=== PATIENT | female | born 1955 | race Caucasian/White ===

== ENCOUNTER → 2017-04-17 | Outpatient (CLI) | payer OTHER | LOC: FIMAGING 15:01 | PROVIDERS: ATTEND Surgery | DX: N63.21 Unspecified lump in the left breast, upper outer quadrant (principal) | CPT/HCPCS: G0204 ==

== ENCOUNTER → 2017-05-29 | Outpatient (CLI) | payer OTHER ==
[~2017-05-29] MED LIST: GADOBUTROL 10 ML VIAL IVP ONE
== END ==
LOC: FIMAGING 12:35
PROVIDERS: ATTEND Surgery
DX: C50.412 Malignant neoplasm of upper-outer quadrant of left female breast (principal)
CPT/HCPCS: 0159T; 77059; A9585; C8908

== ENCOUNTER 2017-06-10 14:05 | Day surgery (SDC) | payer OTHER ==
[2017-06-10] MEDS ORDERED: BUPIVACAINE 0.5% 30 ML SDV ONE (15:12)
[2017-06-10] MEDS ORDERED: LIDOCAINE 1% 300 MG/30 ML SDV ONE (15:12)
[2017-06-10 15:13] LABS: ANION GAP 13 mEq/L (8-16); CALCIUM 10.2 mg/dL (8.5-10.4); CARBON DIOXIDE 29 mEq/l (22-31); CHLORIDE 101 mEq/L (97-110); GLOMERULAR FILTRATION RATE 56; GLUCOSE 117 mg/dL (70-100); POTASSIUM 3.3 mEq/L (3.5-5.2); SODIUM 143 mEq/L (134-144)
--- NOTE | 2017-06-10 15:37 | PDHPUP ---
History & Physical Update H&P update statement: This history and physical update is based on an assessment of the patient which was completed after admission or registration (within 24 hours), but prior to the surgery/procedure.
--- NOTE | 2017-06-10 16:13 | PDANEPAE ---
ANE History of Present Illness 61 year old female presents for breast lumpectomy. ANE Past Medical History - Cardiovascular History Hx Hypertension: Yes Hx Arrhythmias: No Hx Chest Pain: No Hx Coronary Artery / Peripheral Vascular Disease: No Hx CHF / Valvular Disease: No Hx Palpitations: No - Pulmonary History Hx COPD: No Hx Asthma/Reactive Airway Disease: No Hx Recent Upper Respiratory Infection: No Hx Oxygen in Use at Home: No Hx Sleep Apnea: No Sleep Apnea Screening Result - Last Documented: Negative - Neurologic History Hx Cerebrovascular Accident: No Hx Seizures: No Hx Dementia: No - Endocrine History Hx Diabetes: No Hypothyroid: No Hyperthyroid: No Obesity: mild - Renal History Hx Renal Disorders: No - Liver History Hx Hepatic Disorders: No - Neurological & Psychiatric Hx Hx Neurological and Psychiatric Disorders: No - Cancer History Hx Cancer: No - Congenital Disorder History Hx Congenital Disorders: No - GI History GERD: mild Hx Gastrointestinal Disorders: No - Other Health History Other Health History: mass L breast. allergies/hayfever w/ear congestion- postnasal drainage. - Chronic Pain History Chronic Pain: No - Surgical History Prior Surgeries: T and A age 3. cyst excision L ft 1988. cyst excision R shoulder. uterine fibroids removed ANE Review of Systems Review of systems is: negative Review of Systems: - Exercise capacity Exercise capacity: >=4 METS METS (RN): 4 METS ANE Patient History - Allergies Allergies/Adverse Reactions: adhesive Allergy (Verified 06/09/17 14:00) Other-Enter Comments ibuprofen Allergy (Verified 06/09/17 13:58) Other-Enter Comments mold Allergy (Verified 06/09/17 14:00) Penicillins Allergy (Verified 06/09/17 13:58) Other-Enter Comments shellfish derived Allergy (Verified 06/09/17 14:00) Loss of consciousness Sulfa (Sulfonamide Antibiotics) Allergy (Verified 06/09/17 13:58) Other-Enter Comments tetracycline Allergy (Verified 06/09/17 13:58) Rash - Home Medications Home medications: home medication list seen and reviewed Home Medications: Amlodipine Besylate 06/09/17 [Last Taken 06/10/17 06:30] Aspirin 81mg (*) 06/09/17 [Last Taken 06/10/17 08:00] Losartan/Hydrochlorothiazide 06/09/17 [Last Taken 06/09/17 08:00] Prevacid 06/09/17 [Last Taken 06/09/17] Women's Daily Formula Tablet 06/09/17 [Last Taken 06/10/17 08:00] ZYRTEC 06/09/17 [Last Taken 06/10/17 07:30] - NPO status NPO Status: no food or drink >8 hours NPO Since - Liquids (Date): 06/09/17 NPO Since - Liquids (Time): 12:00 NPO Since - Solids (Date): 06/10/17 NPO Since - Solids (Time): 07:30 - Anes Hx Anes Hx: no prior problems - Smoking Hx Smoking Status: Never smoked Marijuana use: No - Alcohol Use Alcohol Use: Rarely - Family Anes Hx Family Anes Hx: neg - N/A ANE Labs/Vital Signs - Labs Result Diagrams: 06/10/17 14:45 - Vital Signs Vital Signs: reviewed preoperatively; see RN documention for details Blood Pressure: 136/86 Heart Rate: 86 Respiratory Rate: 16 O2 Sat (%): 92 Height: 162.56 cm Weight: 78.471 kg ANE Physical Exam - Airway Neck exam: FROM Mallampati Score: Class 2 Mouth exam: normal dental/mouth exam - Pulmonary Pulmonary: no respiratory distress - Cardiovascular Cardiovascular: regular rate and rhythym - ASA Status ASA Status: II ANE Anesthesia Plan Anesthesia Plan: general endotracheal anesthesia Total IV Anesthesia: No
[2017-06-10] MEDS ORDERED: MIDAZOLAM 2 MG/2 ML VIAL IVP ONE (16:16)
[2017-06-10] MEDS ORDERED: MIDAZOLAM 2 MG/2 ML VIAL ONE (16:19)
[2017-06-10] MEDS ORDERED: fentaNYL 100 MCG/2 ML INJ ONE (16:22)
[2017-06-10] MEDS ORDERED: PROPOFOL 200 MG/20 ML VIAL ONE (16:22)
[2017-06-10] MEDS ORDERED: LIDOCAINE 2% 5 ML SDV ONE (16:38)
[2017-06-10] MEDS ORDERED: ROCURONIUM 50 MG/5 ML VIAL ONE (16:38)
[2017-06-10] MEDS ORDERED: DEXAMETHASONE 4 MG/ML VIAL ONE (16:47)
[2017-06-10] MEDS ORDERED: ONDANSETRON 4 MG/2 ML VIAL ONE (16:47)
[2017-06-10] MEDS ORDERED: PHENYLEPHRINE HCL 100 MCG/ML SYR ONE ×2 (17:04→17:24)
--- NOTE | 2017-06-10 18:18 | POSTOPPROG ---
Post Op Note Date of Operation: 06/10/17 Surgeon: Jackson Chu Lead Manufacturing Technician: none Anesthesiologist: Steve Torres Anesthesia: GET(General Endotracheal) Pre-op Diagnosis: left breast cancer Post-op Diagnosis: same Procedure: Partial mastectomy and L SLN bx Findings: Hot node sentinel with several other abnormal appearing nodes Inf/Abcess present in the surg proc area at time of surgery?: No EBL: Minimal Specimen(s): Left breast mass L sentinel lymph nodes
[2017-06-10] MEDS ORDERED: ONDANSETRON DISINTEGRATING 4 MG TAB PO PRN (18:25)
[2017-06-10] MEDS ORDERED: oxyCODONE IR 5 MG TAB PO PRN (18:25)
[2017-06-10] MEDS ORDERED: ONDANSETRON 4 MG/2 ML VIAL IVP PRN (18:50)
[2017-06-10] MEDS ORDERED: NALOXONE HCL 0.4 MG/ML INJ IVP PRN (18:50)
[2017-06-10] MEDS ORDERED: HYDROCODONE/APAP 5/325 TAB PO PRN (18:50)
[2017-06-10] MEDS ORDERED: LR 500 ML IV PRN (18:50)
[2017-06-10] MEDS ORDERED: HYDROmorphONE/DILAUDID 1 MG/ML INJ IVP PRN (18:50)
[2017-06-10] MEDS ORDERED: fentaNYL 100 MCG/2 ML INJ IVP PRN (18:50)
[2017-06-10 19:11] VITALS: BP 122/83; RESP 16; O2SAT 96
[2017-06-10] MEDS ORDERED: HYDROCODONE/APAP 5/325 TAB ONE (19:52)
[2017-06-10] MEDS ORDERED: ONDANSETRON DISINTEGRATING 4 MG TAB ONE (20:04)
[2017-06-10 20:40] VITALS: PULSE 68; TEMP 97.3
--- NOTE | 2017-06-11 04:09 | GOP ---
[f rep st] OPERATIVE REPORT DATE OF OPERATION: SURGEON: Jackson Chu MD ANESTHESIA: General endotracheal anesthesia was used. ANESTHESIOLOGIST: Owen Torres MD PREOPERATIVE DIAGNOSIS: Left breast cancer, upper outer. POSTOPERATIVE DIAGNOSIS: Left breast cancer, upper outer. PROCEDURE PERFORMED: Partial mastectomy with sentinel lymph node biopsy. FINDINGS: That of a large breast mass, margins negative on gross examination by Pathology, and senti tasha lymph nodes several appear abnormal, positive node has over 1000 unit count by gamma counter. INDICATIONS: This is a 61-year-old patient who presents with known breast cancer for definitive shandra tment, lumpectomy, and sentinel node biopsy. DESCRIPTION OF PROCEDURE: The patient was brought into the operating room. After induction of endot luz anesthesia in a supine position, her chest and axilla are prepped with chlorhexidine and drap ed sterilely. Timeout procedure was performed according to institutional standards. Local anestheti c was infused in skin and subcutaneous tissue above the nipple and areolar complex at the area of max imal mass palpation. Circumferential dissection was performed by elevating flaps superiorly, inferio rly, and performing a partial mastectomy of the upper outer quadrant of the breast, down to the chest wall. The pectoralis major muscle was identified and preserved. The margins were then sent off for pathology analysis, appeared negative initially grossly. The axilla is actually obtained through the same incision, and the axilla is entered by dividing the clavipectoral fascia. The gamma counter was then used to identify sentinel nodes, which were then br ought into the field of dissection, circumferentially dissected and excised. A small amount of bleed ing was noted from the vessels around the nodes. These were controlled with tie ligation and clips. Hemostasis assured. The area was irrigated and aspirated until clear. No sign of bleeding. The ar ea was closed using 3-0 Vicryl to reapproximate some of the tissue, and clips were then placed at the cavity margins for final radiation margins. The skin was then reapproximated in layered fashion usi ng 3-0 Vicryl and 4-0 Monocryl. Dermabond was applied. The patient was awakened, extubated, taken to the recovery room in stable condition. No immediate co mplication. /[id number]/MODL
--- NOTE | 2017-06-11 09:05 | POSTANESTH ---
Post Anesthetic Evaluation Cardiovascular Status: Normal, Stable, Similar to Pre-Op Cond Respiratory Status: Normal, Stable, Similar to Pre-op Cond. Level of Consciousness/Mental Status: Can Participate in Eval, Alert and Oriented Pain Control: Adequate, Prn Tx Ordered Nausea/Vomiting Control: Adequate, Prn Tx Ordered Complications Possibly Related to Anesthesia: None Noted
== END 2017-06-10 20:05 | disposition home or self-care (01) ==
LOC: FSGY 14:05
PROVIDERS: ATTEND Surgery
DX: C50.412 Malignant neoplasm of upper-outer quadrant of left female breast (principal); Z17.1 Estrogen receptor negative status [ER-]; I10 Essential (primary) hypertension; K21.9 Gastro-esophageal reflux disease without esophagitis
CPT/HCPCS: 19301; 38500; A9520; J1100; J2250; J2370; J2405; J2704; J3010

== ENCOUNTER 2017-07-27 15:16 | Day surgery (SDC) | payer OTHER ==
[2017-07-27] MEDS ORDERED: LIDOCAINE 1% 300 MG/30 ML SDV ONE (15:29)
[2017-07-27] MEDS ORDERED: BUPIVACAINE 0.5% 30 ML SDV ONE (15:30)
[2017-07-27] MEDS ORDERED: HEPARIN 1000 UNIT/1 ML MDV ONE (15:31)
[2017-07-27] MEDS ORDERED: LIDOCAINE 1% 2 ML INJ ID PRN (15:37)
[2017-07-27] MEDS ORDERED: LR 1,000 ML IV ONE (15:37)
[2017-07-27 15:54] VITALS: PULSE 70
[2017-07-27] MEDS ORDERED: MIDAZOLAM 2 MG/2 ML VIAL IVP ONE (16:19)
--- NOTE | 2017-07-27 16:19 | POSTOPPROG ---
Post Op Note Date of Operation: 07/27/17 Surgeon: Jackson Chu Anesthesiologist: Victoria Powers Anesthesia: IV Sedation Pre-op Diagnosis: left breast cancer Post-op Diagnosis: same Procedure: right chest port -a-cath Inf/Abcess present in the surg proc area at time of surgery?: No
[2017-07-27] MEDS ORDERED: MIDAZOLAM 2 MG/2 ML VIAL ONE (16:20)
--- NOTE | 2017-07-27 16:21 | PDANEPAE ---
ANE History of Present Illness port placement for breast Ca ANE Past Medical History - Cardiovascular History Hx Hypertension: Yes Hx Arrhythmias: No Hx Chest Pain: No Hx Coronary Artery / Peripheral Vascular Disease: No Hx CHF / Valvular Disease: No Hx Palpitations: No - Pulmonary History Hx COPD: No Hx Asthma/Reactive Airway Disease: No Hx Recent Upper Respiratory Infection: No Hx Oxygen in Use at Home: No Hx Sleep Apnea: No Sleep Apnea Screening Result - Last Documented: Negative Pulmonary History Comment: pneumonia 2012 - none since - Neurologic History Hx Cerebrovascular Accident: No Hx Seizures: No Hx Dementia: No - Endocrine History Hx Diabetes: No - Renal History Hx Renal Disorders: No - Liver History Hx Hepatic Disorders: No - Neurological & Psychiatric Hx Hx Neurological and Psychiatric Disorders: No - Cancer History Hx Cancer: Yes Cancer History Comment: breast ca l - Congenital Disorder History Hx Congenital Disorders: No - GI History Hx Gastrointestinal Disorders: Yes Gastrointestinal History Comment: acid reflux - Other Health History Other Health History: mass L breast. allergies/hayfever w/ear congestion- postnasal drainage. - Chronic Pain History Chronic Pain: No - Surgical History Prior Surgeries: l lumpectomy w/sn. T and A age 3. cyst excision L ft 1988. cyst excision R shoulder. uterine fibroids removed ANE Review of Systems Review of Systems: - Exercise capacity METS (RN): 4 METS ANE Patient History - Allergies Allergies/Adverse Reactions: adhesive Allergy (Verified 06/09/17 14:00) Other-Enter Comments ibuprofen Allergy (Verified 06/09/17 13:58) Other-Enter Comments latex Allergy (Verified 07/27/17 16:04) Rash mold Allergy (Verified 06/09/17 14:00) Penicillins Allergy (Verified 06/09/17 13:58) Other-Enter Comments shellfish derived Allergy (Verified 06/09/17 14:00) Loss of consciousness Sulfa (Sulfonamide Antibiotics) Allergy (Verified 06/09/17 13:58) Other-Enter Comments tetracycline Allergy (Verified 06/09/17 13:58) Rash - Home Medications Home Medications: Amlodipine Besylate 06/09/17 [Last Taken 07/27/17] Aspirin 81mg (*) 06/09/17 [Last Taken 1 Month Ago ~06/26/17] Losartan/Hydrochlorothiazide 06/09/17 [Last Taken 1 Day Ago ~07/26/17] Prevacid 06/09/17 [Last Taken 1 Day Ago ~07/26/17] Women's Daily Formula Tablet 06/09/17 [Last Taken 1 Week Ago ~07/20/17] ZYRTEC 06/09/17 [Last Taken 1 Week Ago ~07/20/17] Benadryl 07/22/17 [Last Taken 1 Month Ago ~06/26/17] EPIPEN 07/22/17 [Last Taken Unknown] - NPO status NPO Status: no food or drink >8 hours NPO Since - Liquids (Date): 07/27/17 NPO Since - Liquids (Time): 12:00 NPO Since - Solids (Date): 07/27/17 NPO Since - Solids (Time): 08:15 - Anes Hx Anes Hx: no prior problems - Smoking Hx Smoking Status: Never smoked - Alcohol Use Alcohol Use: Rarely - Family Anes Hx Family Anes Hx: none Family Hx Anesthesia Complications: neg ANE Labs/Vital Signs - Vital Signs Blood Pressure: 143/93 Heart Rate: 70 Respiratory Rate: 18 O2 Sat (%): 95 Height: 162.56 cm Weight: 78.471 kg ANE Physical Exam - Airway Mallampati Score: Class 2 Mouth exam: normal dental/mouth exam - Pulmonary Pulmonary: no respiratory distress - Cardiovascular Cardiovascular: regular rate and rhythym - ASA Status ASA Status: II ANE Anesthesia Plan Anesthesia Plan: GA w LMA, GA with mask
[2017-07-27] MEDS ORDERED: PROPOFOL/EMULSION 500 MG/50 ML BOTTLE IV ONE (16:27)
[2017-07-27] MEDS ORDERED: fentaNYL 100 MCG/2 ML INJ ONE (16:27)
[2017-07-27] MEDS ORDERED: LIDOCAINE 2% JELLY 5 ML TUBE ONE (16:29)
[2017-07-27] MEDS ORDERED: LIDOCAINE 2% 100 MG/5 ML SYR ONE (16:29)
[2017-07-27] MEDS ORDERED: ONDANSETRON DISINTEGRATING 4 MG TAB PO PRN (17:07)
[2017-07-27] MEDS ORDERED: HYDROCODONE/APAP 5/325 TAB PO PRN ×2 (17:07→17:10)
[2017-07-27] MEDS ORDERED: fentaNYL 100 MCG/2 ML INJ IVP PRN (17:10)
[2017-07-27] MEDS ORDERED: LR 500 ML IV PRN (17:10)
[2017-07-27] MEDS ORDERED: ALBUTEROL 3 ML DEYVIAL IH PRN (17:10)
[2017-07-27] MEDS ORDERED: DEXAMETHASONE 4 MG/ML VIAL IVP PRN (17:10)
[2017-07-27] MEDS ORDERED: PROMETHAZINE HCL 25 MG/ML INJ IVP PRN (17:10)
[2017-07-27] MEDS ORDERED: PHENYLEPHRINE HCL 100 MCG/ML SYR IVP PRN (17:10)
[2017-07-27] MEDS ORDERED: NALOXONE HCL 0.4 MG/ML INJ IVP PRN (17:10)
[2017-07-27] MEDS ORDERED: ONDANSETRON 4 MG/2 ML VIAL IVP PRN (17:10)
--- NOTE | 2017-07-27 17:11 | POSTANESTH ---
Post Anesthetic Evaluation Cardiovascular Status: Normal, Stable Respiratory Status: Normal, Stable Level of Consciousness/Mental Status: Can Participate in Eval Pain Control: Adequate, Prn Tx Ordered Nausea/Vomiting Control: Adequate, Prn Tx Ordered Complications Possibly Related to Anesthesia: None Noted
[2017-07-27 18:04] VITALS: TEMP 98.2
[2017-07-27 19:02] VITALS: BP 133/84; RESP 16; O2SAT 95
--- NOTE | 2017-07-28 00:31 | GOP ---
[f rep st] OPERATIVE REPORT DATE OF OPERATION: SURGEON: Jackson Chu MD PREOPERATIVE DIAGNOSIS: Breast cancer, left upper outer with 3 positive lymph nodes. POSTOPERATIVE DIAGNOSIS: Breast cancer, left upper outer with 3 positive lymph nodes. PROCEDURE PERFORMED: Port-A-Cath placement, right chest, through the internal jugular vein. FINDINGS: Good draw and flush of the port. Fluoroscopic guidance shows it is in the superior vena c ellyn. SPECIMENS: None. INDICATIONS: This is a 61-year-old woman who presents for Port-A-Cath placement. DESCRIPTION OF PROCEDURE: Patient was brought to the operating room. After induction of IV sedation , her chest was prepped with chlorhexidine and draped sterilely. Time-out procedure was then perform ed according to institutional standards. Local anesthetic was infused in the skin and subcutaneous t issue of the neck potential port site as well as the tract. Ultrasound guidance was used to identify the internal jugular vein and a single poke was used to enter the vein. Seldinger technique was use d to maintain the position of the wire for placement of the catheter in the central circulation. Flu oroscopic guidance confirmed placement in the IVC going toward the right atrium. The catheter was tu nneled from the port site in the chest to the neck, and then obturator and introducer sheath were may cortez over the wire. The wire and obturator were removed. The catheter was truncated to appropriate s ize and then placed into the central circulation. Confirmation was again performed with fluoroscopy and the port was connected. Good flush and draw were noted. The port was secured laterally using 3- 0 Prolene suture. After needle, instrument, and sponge counts were verified to be correct, the incis ion was closed using 4-0 Monocryl at the chest site as well as the neck. Dermabond was applied. The patient was awakened and taken to the recovery room in stable condition. No immediate complications . COMPLICATIONS: None. /[id number]/MODL
== END 2017-07-27 18:50 | disposition home or self-care (01) ==
LOC: FSGY 15:16
PROVIDERS: ATTEND Surgery
DX: Z45.2 Encounter for adjustment and management of vascular access device (principal); C50.412 Malignant neoplasm of upper-outer quadrant of left female breast; I10 Essential (primary) hypertension
CPT/HCPCS: C1788; J1642; J1644; J2001; J2250; J2704; J3010

== ENCOUNTER → 2018-03-19 | Outpatient (CLI) | payer OTHER | LOC: FIMAGING 14:45 | PROVIDERS: ATTEND Surgery | DX: Z08 Encounter for follow-up examination after completed treatment for malignant neoplasm (principal); Z85.3 Personal history of malignant neoplasm of breast ==

== ENCOUNTER → 2018-09-24 | Outpatient (CLI) | payer OTHER | LOC: FIMAGING 14:26 | PROVIDERS: ATTEND Internal Medicine Hematology & Oncology | DX: Z12.31 Encounter for screening mammogram for malignant neoplasm of breast (principal); Z85.3 Personal history of malignant neoplasm of breast ==

== ENCOUNTER → 2018-12-23 | Outpatient (CLI) | payer OTHER | LOC: FIMAGING 11:26 ==